=== PATIENT | male | born 1980 | race Caucasian/White ===

== ENCOUNTER 2024-11-15 08:30 | Emergency (ER) | payer OTHER ==
[~2024-11-15] VITALS: Ht 170.2 cm; Wt 82.6 kg
[2024-11-15 08:32] VITALS: TEMP 98.6
[2024-11-15] MEDS ORDERED: ACETAMINOPHEN ES 500 MG TABLET ONE (08:44)
[2024-11-15] MEDS ORDERED: TDAP [DIPH/PERTUSSIS/TET] 0.5 ML VIAL IM ONE (08:45)
[2024-11-15] MEDS: TDAP [DIPH/PERTUSSIS/TET] 0.5 ML VIAL IM ONE (08:55)
[2024-11-15] MEDS: ACETAMINOPHEN ES 500 MG TABLET PO ONE (09:05)
[2024-11-15] MEDS: IV NS 0.9% 500 ML BAG IV ONE (09:08)
[2024-11-15 09:36] LABS: CREATININE 0.8 mg/dL (0.6-1.3); POTASSIUM 4.5 mmol/L (3.5-5.1)
[2024-11-15 11:23] VITALS: BP 122/81; O2SAT 96
== END 2024-11-15 12:56 ==
LOC: ER 08:35
DX: S01.81XA Laceration without foreign body of other part of head, initial encounter (principal); Z86.73 Personal history of transient ischemic attack (TIA), and cerebral infarction without residual deficits; Z99.3 Dependence on wheelchair; W18.39XA Other fall on same level, initial encounter; Y93.89 Activity, other specified; Y92.89 Other specified places as the place of occurrence of the external cause; Y99.8 Other external cause status
CPT/HCPCS: 12013; 36415; 70450; 72131; 80048; 90471; 90715; 93005; 99285; J7040

== ENCOUNTER 2025-05-10 12:27 | Inpatient (IN) | payer OTHER ==
[~2025-05-10] VITALS: Ht 170.2 cm; Wt 98.9 kg
[2025-05-10] MEDS ORDERED: GABA-536 PO (13:02)
[2025-05-10] MEDS ORDERED: BACL20TA PO (13:02)
[2025-05-10] MEDS ORDERED: GUAI-966 PO (13:02)
[2025-05-10] MEDS ORDERED: CYCL10TA9 PO (13:02)
[2025-05-10] MEDS ORDERED: FAMO20TA8 PO (13:02)
[2025-05-10] MEDS ORDERED: MAGN500C16 PO (13:02)
[2025-05-10] MEDS ORDERED: NAPR-1009 PO (13:02)
[2025-05-10] MEDS ORDERED: LEVE750T10 PO (13:02)
[2025-05-10] MEDS ORDERED: OXCA150T13 PO (13:02)
[2025-05-10] MEDS ORDERED: QUET50TA PO (13:02)
[2025-05-10] MEDS ORDERED: IV NS 0.9% 250 ML IV ONE (13:04)
[2025-05-10] MEDS ORDERED: IOHEXOL-350 100 ML VIAL IV ONE (13:04)
[2025-05-10 13:10] LABS: PLATELET COUNT (AUTO) 220 K/uL (150-450); RED BLOOD CELL COUNT(AUTO) 4.98 MIL/uL (4.5-6.0); RED CELL DISTRIBUTION WIDTH 15.0 % (11.5-15.0); WHITE BLOOD COUNT (AUTO) 5.5 K/uL (4.3-11.0)
[2025-05-10 13:17] LABS: CALCIUM, SERUM 9.0 mg/dL (8.5-10.1); CREATININE 0.7 mg/dL (0.6-1.3); SODIUM SERUM 137.0 mmol/L (136-145); UREA NITROGEN, BLOOD 12.0 mg/dL (7-18)
[2025-05-10 13:22] LABS: INR 1.05 (0.91-1.10)
[2025-05-10] MEDS: BACLOFEN (10 MG) 10 MG TABLET PO SCH (17:01)
[2025-05-10] MEDS: GABAPENTIN 400 MG CAPSULE PO SCH (17:01)
[2025-05-10] MEDS: OXCARBAZEPINE 150 MG TABLET PO SCH (17:01)
[2025-05-10] MEDS: LEVETIRACETAM (250 MG) 250 MG TABLET PO SCH (17:01)
[2025-05-10] MEDS: BLOOD SUGAR DIAGNOSTIC 1 EACH STRIP IN SCH (17:30)
[2025-05-10 18:08] VITALS: BP 152/100; TEMP 98.2; O2SAT 96
[2025-05-10 21:01] VITALS: BP 129/100; TEMP 97.5; O2SAT 100
[2025-05-10] MEDS: FAMOTIDINE (20 MG) 20 MG TABLET PO SCH (21:05)
[2025-05-10] MEDS: ATORVASTATIN 40 MG TABLET PO SCH (21:05)
[2025-05-11] VITALS: BP 110/78; TEMP 97.3; O2SAT 100
[2025-05-11 04:00] VITALS: BP 112/82; TEMP 97.7; O2SAT 98
[2025-05-11] MEDS: ACETAMINOPHEN 325 MG TABLET PO PRN (05:53)
[2025-05-11 07:07] LABS: PLATELET COUNT (AUTO) 229 K/uL (150-450); RED BLOOD CELL COUNT(AUTO) 5.08 MIL/uL (4.5-6.0); RED CELL DISTRIBUTION WIDTH 15.2 % (11.5-15.0); WHITE BLOOD COUNT (AUTO) 4.7 K/uL (4.3-11.0)
[2025-05-11 07:15] LABS: CALCIUM, SERUM 8.9 mg/dL (8.5-10.1); CREATININE 0.9 mg/dL (0.6-1.3); SODIUM SERUM 142.0 mmol/L (136-145); UREA NITROGEN, BLOOD 13.0 mg/dL (7-18)
[2025-05-11 07:21] LABS: LDL 101.0 mg/dL (0-99)
[2025-05-11 08:00] VITALS: BP 124/93; TEMP 97.8; O2SAT 96
[2025-05-11] MEDS: MAGNESIUM OXIDE 400 MG TABLET PO SCH (08:17)
[2025-05-11 09:43] LABS: INR 1.08 (0.91-1.10)
[2025-05-11 12:00] VITALS: BP 129/102; TEMP 97.9; O2SAT 96
[2025-05-11 16:00] VITALS: BP 139/112; TEMP 98.1; O2SAT 98
[2025-05-11 20:00] VITALS: BP 136/84; TEMP 97.9; O2SAT 96
[2025-05-12] VITALS: BP 152/62; TEMP 98.1; O2SAT 96
[2025-05-12 04:00] VITALS: BP 135/98; TEMP 97.5; O2SAT 95
[2025-05-12 08:13] VITALS: BP 127/94; TEMP 97.7; O2SAT 97
[2025-05-12] MEDS: ASPIRIN 81 MG TAB.CHEW PO SCH (10:06)
[2025-05-12] MEDS: CLOPIDOGREL BISULFATE 75 MG TABLET PO SCH (10:28)
[2025-05-12 12:08] VITALS: BP 123/84; TEMP 97.5; O2SAT 97
[2025-05-12] MEDS ORDERED: IOHEXOL-350 100 ML VIAL IV ONE (14:29)
[2025-05-12] MEDS ORDERED: IV NS 0.9% 250 ML IV ONE (14:29)
[2025-05-12] MEDS ORDERED: CT SWABBABLE VALVE TRANS SET 1 EA INFUS.SET MC ONE (14:29)
[2025-05-12 15:56] VITALS: BP 122/92; TEMP 97.9; O2SAT 98
[2025-05-12 16:09] VITALS: BP 122/92; TEMP 97.9; O2SAT 98
[2025-05-12] MEDS ORDERED: ATOR40TA PO (16:21)
[2025-05-12] MEDS ORDERED: CLOP75TA15 PO (16:21)
[2025-05-12] MEDS ORDERED: ASPI-1169 PO (16:21)
[2025-05-12] MEDS ORDERED: ATORVASTATIN 40 MG TABLET PO SCH (22:00)
== END 2025-05-12 18:15 | disposition home health service (06) | DRG 58 ==
LOC: ER 12:41 → TELE1 16:28
PROVIDERS: ADMIT Nurse Practitioner Acute Care; ATTEND Nurse Practitioner Acute Care
DX: I69.354 Hemiplegia and hemiparesis following cerebral infarction affecting left non-dominant side (principal); G93.89 Other specified disorders of brain; G40.909 Epilepsy, unspecified, not intractable, without status epilepticus; F41.9 Anxiety disorder, unspecified; R29.709 NIHSS score 9; I10 Essential (primary) hypertension; Z88.0 Allergy status to penicillin; Z91.199 Patient's noncompliance with other medical treatment and regimen due to unspecified reason; Z79.899 Other long term (current) drug therapy; E78.5 Hyperlipidemia, unspecified; R25.2 Cramp and spasm; Z79.82 Long term (current) use of aspirin; Z79.02 Long term (current) use of antithrombotics/antiplatelets
CPT/HCPCS: 36415; 70450-TC; 70496-TC; 70498-TC; 80048-TC; 80061-TC; 82962-TC; 85025-TC; 85730-TC; 92526; 92611; 97110-TC; 97116-TC; 97530-TC; 97535-TC; G0378; J7050; Q9967